=== PATIENT | male | born 1980 | race Caucasian/White ===

== ENCOUNTER 2025-01-25 04:03 | Emergency (ER) | payer OTHER, SELFPAY ==
[2025-01-25 04:08] VITALS: BP 128/81; PULSE 57; TEMP 36.9; O2SAT 99; BMI 31.2
--- NOTE | 2025-01-25 04:22 | ED_ITS ---
HPI HPI - General Adult General Chief complaint: Abdominal Pain Stated complaint: R SIDED FLANK PAIN Time Seen by Provider: 01/25/25 04:06 Source: patient Mode of arrival: walk-in Limitations: no limitations History of Present Illness HPI narrative: This 44-year-old male with a history of hypertension presents for evaluation of pain in his right flank associated with a bout of nausea earlier in the evening. He states the pain started around 10:30 PM. It has been getting progressively worse since that time. He does have urinary frequency but states he drinks a lot of water. There is no radiation into his groin. He has never had any kidney stones or abdominal surgery. He does not have any fever. He denies any chest pain or shortness of breath. Related Data Home Medications ?Medication ?Instructions ?Recorded ?Confirmed lisinopril 20 mg tablet 20 mg PO DAILY 01/25/2501/12 venlafaxine 37.5 mg 37.5 mg PO DAILY 01/25/25 capsule,extended release 24 hr Allergies Allergy/AdvReac Type Severity Reaction Status Date / Time No Known Drug Allergies Allergy Verified 01/25/25 04:13 Opioid HPI Opioid Management Most Recent Opioid Data: Last Pain Scale 2 Today, 05:55 Last ED Pain Assessment Today, 05:05 Last MAR Pain Assessment Today, 04:29 Review of Systems ROS Status of ROS 10 or more systems reviewed and unremark able except as noted in history and below PFSH PFSH Social History Little interest or pleasure in doing things: not at all Feeling down, depressed, or hopeless: not at all Exam Narrative Exam Narrative: Vital signs and Nursing Notes reviewed: Patient is afebrile, mildly bradycardic with a pulse of 57, blood pressure is normal at 128/81, he is not hypoxic with pulse ox of 99% on room air General: Awake, alert, oriented, no acute distress, lying comfortably on the stretcher-patient grimaces in pain with movement on the stretcher HEENT: Normocephalic atraumatic, mucous membranes are moist and pink, eyes are clear, normal conjunctiva, vision is grossly intact Neck: Supple Chest: Lungs are clear to auscultation with good air entry, there is no wheezing rhonchi or rales appreciated no accessory muscle use, patient is speaking in complete sentences-no chest wall tenderness to palpation CVS: Regular rate and rhythm S1-S2, no murmurs rubs or gallops, pulses are brisk and equal bilaterally ABD: Soft, nondistended, nontender, no rebound guarding or rigidity, bowel sounds are normal, no pulsatile masses appreciated, no reproducible tenderness in the right lower quadrant, right upper quadrant or right flank. Extremities: Moving all extremities, no lower extremity tenderness or swelling noted, negative Homans' sign, pulses are brisk and equal bilaterally Skin: Normal in appearance without rash,pallor, petechiae or purpura Neuro: No focal deficits Constitutional Vital Signs, click to edit/add: Last Vital Signs Temp 98.5 F 01/25/25 04:08 Pulse 57 L 01/25/25 04:08 Resp 14 01/25/25 04:08 BP 128/81 01/25/25 04:08 Pulse Ox 99 01/25/25 04:08 O2 Del Method Room Air 01/25/25 04:08 Course Vital Signs Vital signs: Vital Signs Temperature 98.5 F 01/25/25 04:08 Pulse Rate 57 L 01/25/25 04:08 Respiratory Rate 01/25/25 04:08 Blood Pressure 128/81 01/25/25 04:08 Pulse Oximetry 99 01/25/25 04:08 Oxygen Delivery Method Room Air 01/25/25 04:08 Temperature 98.5 F 01/25/25 04:08 Pulse Rate 57 L 01/25/25 04:08 Respiratory Rate 01/25/25 04:08 Blood Pressure 128/81 01/25/25 04:08 Pulse Oximetry 99 01/25/25 04:08 Oxygen Delivery Method Room Air 01/25/25 04:08 Medical Decision Making [facility] Narrative Medical decision making narrative: This 44-year-old male with a history of hypertension presents for evaluation of right low back/flank pain that started around 10:30 PM. He denies any heavy lifting or injury to his back. He had an episode of nausea when his symptoms started. He has had some urinary frequency without any hematuria. He had no reproducible tenderness in his flank or abdomen but did wince in pain with movement on the stretcher when he stood up for me to evaluate him. He states he could not sit up during the exam due to the pain in his back. An IV was placed and he was medicated with IV fluids, Zofran for the nausea and Toradol for the pain. Routine labs and urine were ordered. He has a normal white count and hemoglobin. Electrolytes are normal. Urine is normal with no blood or sign of infection. CT scan of the abdomen pelvis without contrast was ordered to rule out kidney stone. His girlfriend advised me that he was admitted earlier this year to [facility] for diverticulitis and then sent to [place] for further evaluation and treatment but did not require surgical intervention. CT is pending at the time of shift change and he will be signed out to the incoming physician for further evaluation and disposition. Lab Data Labs: Lab Results 01/25/25 01/25/25 Range/Units 04:10 04:20 WBC 8.6 (4.0-11.0) 10^3/uL RBC 4.83 (4.70-6.10) 10^6/uL Hgb 14.1 (14.0-18.0) g/dL Hct 41.5 L (42.0-54.0) % MCV 85.9 (80.0-94.0) fL MCH 29.2 (25.9-34.0) pg MCHC 34.0 (29.9-35.2) g/dL RDW 12.5 (11.0-15.0) % Plt Count 242 (150-450) 10^3/uL MPV 9.7 (9.5-13.5) fL Neut % (Auto) 50.8 (43.0-75.0) % Lymph % (Auto) 40.9 (20.5-60.0) % [place] % (Auto) 6.0 (1.7-12.0) % Eos % (Auto) 1.4 (0.9-7.0) % Baso % (Auto) 0.6 (0.2-2.0) % Neut # (Auto) 4.4 (1.4-6.5) 10^3/uL Lymph # (Auto) 3.5 (1.2-3.8) 10^3/uL [place] # (Auto) 0.5 (0.3-0.8) 10^3/uL Eos # (Auto) 0.1 (0.0-0.7) 10^3/uL Baso # (Auto) 0.1 (0.0-0.1) 10^3/uL Abs Immat Gran (auto) 0.03 (0.00-0.03) 10^3/uL Imm/Tot Granulo (auto) 0.3 (0.0-0.5) % Sodium 139 (136-145) mmol/L Potassium 4.4 (3.5-5.1) mmol/L Chloride 102 (98-107) mmol/L Carbon Dioxide 28.0 (21.0-32.0) mmol/L Anion Gap 13.4 BUN 15.0 (7.0-18.0) mg/dL Creatinine 0.75 (0.70-1.30) mg/dL Est GFR ( Amer) >60 (>=60 mL/min/1.73m^2) Est GFR (Non-Af Amer) >60 (>=60 mL/min/1.73m^2) BUN/Creatinine Ratio 20.0 Glucose 103 (74-106) mg/dL Calcium 9.4 (8.5-10.1) mg/dL Total Bilirubin 0.4 (0.2-1.0) mg/dL AST 16 (15-37) U/L ALT 28 (16-63) U/L Alkaline Phosphatase 79 (46-116) U/L Total Protein 7.1 (6.4-8.2) g/dL Albumin 3.7 (3.4-5.0) g/dL Globulin 3.4 g/dL Albumin/Globulin Ratio 1.1 Urine Color Lt. yellow (YELLOW) Urine Clarity Clear (CLEAR) Urine pH 7.0 (5.0-9.0) Ur Specific [place] 1.010 (1.005-1.025) Urine Protein Negative (NEG/TRACE) mg/dL Urine Glucose (UA) Negative (NEGATIVE) mg/dL Urine Ketones Negative (NEGATIVE) mg/dL Urine Occult Blood Trace-i (NEGATIVE) Urine Nitrite Negative (NEGATIVE) Urine Bilirubin Negative (NEGATIVE) Urine Urobilinogen 0.2 (0.2-1.0) EU/dL Ur Leukocyte Esterase Negative (NEGATIVE) Urine RBC 0-2 (0-2) #/HPF Urine WBC None seen (NONE SEEN) #/HPF Ur Squamous Epith Cells None seen (NONE/RARE) #/LPF Urine Crystals None seen (None Seen) #/HPF Urine Bacteria None seen (NONE SEEN) #/HPF Urine Casts None seen (NONE SEEN) #/LPF Urine Mucus None seen (NONE SEEN) Ur Culture Indicated? No Discharge Plan Discharge Chief Complaint: Abdominal Pain Clinical Impression: Acute right flank pain Prescriptions / Home Meds: No Action lisinopril 20 mg tablet 20 mg PO DAILY venlafaxine 37.5 mg capsule,extended release 24hr 37.5 mg PO DAILY Print Language: Stateless Referrals: SANJAY TUCKER [Primary Care Provider, Family Practice] - 1 week
[2025-01-25] MEDS: KETOROLAC TROMETHAMINE 30 MG/ML VIAL IVP (04:29)
[2025-01-25 04:33] LABS: Hematocrit 41.5 % (42.0-54.0); Hemoglobin 14.1 g/dL (14.0-18.0); Immature Granulocytes Abs Auto 0.03 10^3/uL (0.00-0.03); Immature Granulocytes Pct Auto 0.3 % (0.0-0.5); Lymphocytes Absolute Auto 3.5 10^3/uL (1.2-3.8); Mean Corpuscular HGB Conc 34.0 g/dL (29.9-35.2); Mean Corpuscular Hemoglobin 29.2 pg (25.9-34.0); Mean Corpuscular Volume 85.9 fL (80.0-94.0); Platelet Count 242 10^3/uL (150-450); Red Blood Count 4.83 10^6/uL (4.70-6.10); White Blood Count 8.6 10^3/uL (4.0-11.0)
[2025-01-25 04:34] LABS: Glucose Urine UA NEGATIVE (NEGATIVE)
[2025-01-25 04:40] LABS: Cast Seen? NONE SEEN #/LPF (NONE SEEN); Crystals Seen? None Seen #/HPF (None Seen); Urine Culture Indicated NO
[2025-01-25 04:48] LABS: Alanine Aminotransferase 28 U/L (16-63); Albumin Globulin Ratio 1.1; Albumin Level 3.7 g/dL (3.4-5.0); Alkaline Phosphatase 79 U/L (46-116); Anion Gap 13.4; Aspartate Amino Transferase 16 U/L (15-37); Blood Urea Nitrogen 15.0 mg/dL (7.0-18.0); Calcium 9.4 mg/dL (8.5-10.1); Carbon Dioxide 28.0 mmol/L (21.0-32.0); Chloride 102 mmol/L (98-107); Estimated GFR (African America >60 (>=60 mL/min/1.73m^2); Estimated GFR (Non-African Ame >60 (>=60 mL/min/1.73m^2); Globulin 3.4 g/dL; Glucose 103 mg/dL (74-106); Potassium 4.4 mmol/L (3.5-5.1); Sodium 139 mmol/L (136-145); Total Protein 7.1 g/dL (6.4-8.2)
--- NOTE | 2025-01-25 08:06 | ED.GENADUL1 ---
HPI HPI - General Adult General Chief complaint: Abdominal Pain Stated complaint: R SIDED FLANK PAIN Time Seen by Provider: 01/25/25 04:06 Source: patient Mode of arrival: walk-in Limitations: no limitations History of Present Illness HPI narrative: 44-year-old male presents to the emergency department and was initially seen by Dr. Ordonez and signed out to me after discussing the case with her thoroughly. Please see her full history and physical exam. Related Data Home Medications ?Medication ?Instructions ?Recorded ?Confirmed lisinopril 20 mg tablet 20 mg PO DAILY 01/25/25 01/25/25 venlafaxine 37.5 mg 37.5 mg PO DAILY 01/25/25 01/25/25 capsule,extended release 24 hr Previous Rx's ?Medication ?Instructions ?Recorded ibuprofen 800 mg tablet 800 mg PO Q8H PRN pain #20 tabs 01/25/25 methocarbamol 750 mg tablet 750 mg PO Q6H PRN pain #20 tabs 01/25/25 Allergies Allergy/AdvReac Type Severity Reaction Status Date / Time No Known Drug Allergies Allergy Verified 01/25/25 04:13 Opioid HPI Opioid Management Most Recent Opioid Data: Last Pain Scale 2 Today, 05:55 Last ED Pain Assessment Today, 05:05 Last MAR Pain Assessment Today, 04:29 PFSH PFSH Social History Little interest or pleasure in doing things: not at all Feeling down, depressed, or hopeless: not at all Exam Constitutional Vital Signs, click to edit/add: Last Vital Signs Temp 98.5 F 01/25/25 04:08 Pulse 57 L 01/25/25 04:08 Resp 01/25/25 04:08 BP 128/81 01/25/25 04:08 Pulse Ox 99 01/25/25 04:08 O2 Del Method Room Air 01/25/25 04:08 Course Vital Signs Vital signs: Vital Signs Temperature 98.5 F 01/25/25 04:08 Pulse Rate 57 L 01/25/25 04:08 Respiratory Rate 01/25/25 04:08 Blood Pressure 128/81 01/25/25 04:08 Pulse Oximetry 99 01/25/25 04:08 Oxygen Delivery Method Room Air 01/25/25 04:08 Temperature 98.5 F 01/25/25 04:08 Pulse Rate 57 L 01/25/25 04:08 Respiratory Rate 01/25/25 04:08 Blood Pressure 128/81 01/25/25 04:08 Pulse Oximetry 99 01/25/25 04:08 Oxygen Delivery Method Room Air 01/25/25 04:08 Medical Decision Making MDM Narrative Medical decision making narrative: Workup including CT is negative. He will be treated for muscular pain with ibuprofen and methocarbamol. Treatment diagnosis and follow-up were discussed with the patient. Lab Data Lab results reviewed: Yes I reviewed the patient's lab results Labs: Lab Results 01/25/25 01/25/25 Range/Units 04:10 04:20 WBC 8.6 (4.0-11.0) 10^3/uL RBC 4.83 (4.70-6.10) 10^6/uL Hgb 14.1 (14.0-18.0) g/dL Hct 41.5 L (42.0-54.0) % MCV 85.9 (80.0-94.0) fL MCH 29.2 (25.9-34.0) pg MCHC 34.0 (29.9-35.2) g/dL RDW 12.5 (11.0-15.0) % Plt Count 242 (150-450) 10^3/uL MPV 9.7 (9.5-13.5) fL Neut % (Auto) 50.8 (43.0-75.0) % Lymph % (Auto) 40.9 (20.5-60.0) % [place] % (Auto) 6.0 (1.7-12.0) % Eos % (Auto) 1.4 (0.9-7.0) % Baso % (Auto) 0.6 (0.2-2.0) % Neut # (Auto) 4.4 (1.4-6.5) 10^3/uL Lymph # (Auto) 3.5 (1.2-3.8) 10^3/uL [place] # (Auto) 0.5 (0.3-0.8) 10^3/uL Eos # (Auto) 0.1 (0.0-0.7) 10^3/uL Baso # (Auto) 0.1 (0.0-0.1) 10^3/uL Abs Immat Gran (auto) 0.03 (0.00-0.03) 10^3/uL Imm/Tot Granulo (auto) 0.3 (0.0-0.5) % Sodium 139 (136-145) mmol/L Potassium 4.4 (3.5-5.1) mmol/L Chloride 102 (98-107) mmol/L Carbon Dioxide 28.0 (21.0-32.0) mmol/L Anion Gap 13.4 BUN 15.0 (7.0-18.0) mg/dL Creatinine 0.75 (0.70-1.30) mg/dL Est GFR ( Amer) >60 (>=60 mL/min/1.73m^2) Est GFR (Non-Af Amer) >60 (>=60 mL/min/1.73m^2) BUN/Creatinine Ratio 20.0 Glucose 103 (74-106) mg/dL Calcium 9.4 (8.5-10.1) mg/dL Total Bilirubin 0.4 (0.2-1.0) mg/dL AST 16 (15-37) U/L ALT 28 (16-63) U/L Alkaline Phosphatase 79 (46-116) U/L Total Protein 7.1 (6.4-8.2) g/dL Albumin 3.7 (3.4-5.0) g/dL Globulin 3.4 g/dL Albumin/Globulin Ratio 1.1 Urine Color Lt. yellow (YELLOW) Urine Clarity Clear (CLEAR) Urine pH 7.0 (5.0-9.0) Ur Specific [place] 1.010 (1.005-1.025) Urine Protein Negative (NEG/TRACE) mg/dL Urine Glucose (UA) Negative (NEGATIVE) mg/dL Urine Ketones Negative (NEGATIVE) mg/dL Urine Occult Blood Trace-i (NEGATIVE) Urine Nitrite Negative (NEGATIVE) Urine Bilirubin Negative (NEGATIVE) Urine Urobilinogen 0.2 (0.2-1.0) EU/dL Ur Leukocyte Esterase Negative (NEGATIVE) Urine RBC 0-2 (0-2) #/HPF Urine WBC None seen (NONE SEEN) #/HPF Ur Squamous Epith Cells None seen (NONE/RARE) #/LPF Urine Crystals None seen (None Seen) #/HPF Urine Bacteria None seen (NONE SEEN) #/HPF Urine Casts None seen (NONE SEEN) #/LPF Urine Mucus None seen (NONE SEEN) Ur Culture Indicated? No Imaging Data CT scan - abdomen: Radiologist's impression: No acute abnormality in the abdomen and pelvis Discharge Plan Discharge Chief Complaint: Abdominal Pain Clinical Impression: Acute right flank pain Patient Disposition: Home, Self-Care Time of Disposition Decision: 08:05 Condition: Good Mode of Transportation: Private Vehicle Prescriptions / Home Meds: New ibuprofen 800 mg tablet 800 mg PO Q8H PRN (Reason: pain) Qty: 20 0RF methocarbamol 750 mg tablet 750 mg PO Q6H PRN (Reason: pain) Qty: 20 0RF No Action lisinopril 20 mg tablet 20 mg PO DAILY venlafaxine 37.5 mg capsule,extended release 24hr 37.5 mg PO DAILY Print Language: Turkish Instructions: Flank Pain (ED) Referrals: SANJAY TUCKER [Primary Care Provider, Family Practice] - 1 week
[2025-01-25 08:16] VITALS: BP 106/64
== END 2025-01-25 08:24 | disposition home or self-care (01) ==
PROVIDERS: Emergency Medicine; Emergency Provider Emergency Medicine; PCP Nurse Practitioner Family
DX: R10.9 Unspecified abdominal pain (principal); I10 Essential (primary) hypertension; M54.50 Low back pain, unspecified
CPT/HCPCS: 36415; 74176; 80053; 81001; 85025; 96374; 96375; 99285; J1885; J2405